=== PATIENT | male | born 1970 | race Caucasian/White ===

== ENCOUNTER 2017-07-25 15:08 | Emergency (ER) | payer MEDICARE, SELFPAY ==
[~2017-07-25 15:08] MED LIST: Sodium Chloride Irrig Solution 250 ML BOT ONE
== END 2017-07-25 15:50 | disposition home or self-care (01) ==
LOC: MADERS 15:08
DX: S51.811A Laceration without foreign body of right forearm, initial encounter (principal); I10 Essential (primary) hypertension; K21.9 Gastro-esophageal reflux disease without esophagitis; F17.210 Nicotine dependence, cigarettes, uncomplicated; W26.8XXA Contact with other sharp object(s), not elsewhere classified, initial encounter
CPT/HCPCS: 12002